=== PATIENT | female | born 1980 | race Two or more races ===

== ENCOUNTER 2019-01-12 19:10 | Emergency (ER) | payer OTHER, MEDICAID ==
[~2019-01-12] VITALS: Ht 157.5 cm; Wt 54.4 kg
[2019-01-12 19:18] VITALS: BP 139/86
[2019-01-12] MEDS ORDERED: ACETAMINOPHEN 325 MG TABLET ONE (19:49)
[2019-01-12] MEDS ORDERED: ACETAMINOPHEN 325 MG TABLET PO ONE (20:00)
--- NOTE | 2019-01-12 20:42 | NUR ---
Pt released under the custody of PEDRO. Pt is medically cleared for booking. pt is in stable condition. Pt is ambulatory w/o assist on steady gait.
--- NOTE | 2019-01-12 20:42 | NUR ---
Gena love in EDM - 01/12/19 at 2042 by MARIA GUADALUPE Patient discharged to home in stable condition. Written and verbal after care instructions given. Patient verbalizes understanding of instruction. Pt ambulatory with a steady gait
== END 2019-01-12 20:44 ==
LOC: EDBD 19:11 → ER 19:11
DX: J32.8 Other chronic sinusitis (principal); H57.89 Other specified disorders of eye and adnexa; F17.210 Nicotine dependence, cigarettes, uncomplicated; I10 Essential (primary) hypertension; Z90.49 Acquired absence of other specified parts of digestive tract; Z98.51 Tubal ligation status
CPT/HCPCS: 71045-TC